=== PATIENT | female | born 1945 | race Caucasian/White ===

== ENCOUNTER 2016-09-29 16:28 | Inpatient (IN) | payer OTHER ==
[~2016-09-29] VITALS: Ht 157.5 cm; Wt 61.2 kg
[2016-09-29] MEDS ORDERED: FLUT1DIS3 INH (17:42)
[2016-09-29] MEDS ORDERED: PRAM1TAB5 PO (17:42)
[2016-09-29] MEDS ORDERED: ATOR20TA9 PO (17:42)
[2016-09-29] MEDS ORDERED: ENAL10TA PO (17:42)
[2016-09-29] MEDS ORDERED: CITA20TA9 PO (17:42)
[2016-09-29] MEDS ORDERED: TIOT18CA INH (17:42)
[2016-09-29] MEDS ORDERED: [UNRECOGNIZED DRUG - OTHER] PO (17:42)
[2016-09-29] MEDS ORDERED: OXYC-229 PO (17:42)
[2016-09-29] MEDS ORDERED: [UNRECOGNIZED DRUG - OTHER] PO (17:42)
[2016-09-29] MEDS ORDERED: CARV3.1212 PO (17:42)
[2016-09-29] MEDS ORDERED: ONDANSETRON 2MG/ML, 2ML ONE ×2 (18:14→19:19)
[2016-09-29] MEDS ORDERED: SODIUM CHLORIDE FLUSH 10ML SYR IVF ONE (18:30)
[2016-09-29] MEDS ORDERED: ONDANSETRON 2MG/ML, 2ML IVPush ONE ×2 (18:30→19:30)
[2016-09-29] MEDS ORDERED: SODIUM CHLORIDE 0.9% 1,000ML IVBOLUS ONE (18:30)
[2016-09-29 18:53] LABS: HEMOGLOBIN 16.4 g/dL (11.7-16.4)
[2016-09-29] MEDS ORDERED: MORPHINE SULFATE 4 MG/ML, 1ML IVPush ONE (19:00)
[2016-09-29 19:04] LABS: ASPARTATE AMINO TRANSFERASE 21 U/L (15-37); BLOOD UREA NITROGEN 10 mg/dL (7-18)
[2016-09-29 19:08] LABS: IS PT STATUS REG ER OR PRE ER? YES
[2016-09-29] MEDS ORDERED: ASPIRIN 81 MG TABLET CHEW ONE (19:25)
[2016-09-29] MEDS ORDERED: MORPHINE SULFATE 4 MG/ML, 1ML ONE (19:25)
[2016-09-29] MEDS ORDERED: ASPIRIN 81 MG TABLET CHEW PO ONE (19:30)
[2016-09-29 19:59] LABS: PATH.CAST-FLAG NOT PRESENT; SPERM-FLAG NOT PRESENT; SRC-FLAG NOT PRESENT; XTAL-FLAG NOT PRESENT; YLC-FLAG NOT PRESENT
[2016-09-29] MEDS ORDERED: SODIUM CHLORIDE 0.9% 1,000 ML IV SCH (20:12)
[2016-09-29] MEDS ORDERED: POLYETHYLENE GLYCOL 17 GM PACKET PO PRN (20:30)
[2016-09-29] MEDS ORDERED: MORPHINE SULFATE 4 MG/ML, 1ML IVPush PRN (20:30)
[2016-09-29] MEDS ORDERED: BISACODYL 10 MG SUPP PR PRN (20:30)
[2016-09-29] MEDS ORDERED: NABUMETONE 500 MG TABLET PO SCH (21:00)
[2016-09-29 21:16] LABS: IS PT STATUS REG ER OR PRE ER? YES
[2016-09-29 21:25] VITALS: BP 153/91
[2016-09-29] MEDS: CARBAMAZEPINE XR 200 MG TABLET PO SCH (22:35)
[2016-09-29] MEDS: ATORVASTATIN 20 MG TABLET PO SCH (22:35)
[2016-09-29] MEDS: HEPARIN 5,000 UNITS/ML, 1ML SQ SCH (22:35)
[2016-09-29] MEDS ORDERED: MAGNESIUM SULFATE PMX 2GM/50ML 50 ML IV ONE (23:00)
[2016-09-30] VITALS (7 sets, daily range): BP systolic 77–120; BP diastolic 46–70
[2016-09-30 02:04] LABS: HEMOGLOBIN 14.5 g/dL (11.7-16.4)
[2016-09-30 02:23] LABS: ASPARTATE AMINO TRANSFERASE 21 U/L (15-37); BLOOD UREA NITROGEN 11 mg/dL (7-18)
[2016-09-30 02:37] LABS: IS PT STATUS REG ER OR PRE ER? NO
[2016-09-30] MEDS: HEPARIN 5,000 UNITS/ML, 1ML SQ SCH ×3 (04:47→21:11)
[2016-09-30] MEDS ORDERED: MAGNESIUM SULFATE PMX 2GM/50ML 50 ML IV ONE (07:00)
[2016-09-30] MEDS: IPRATROPIUM 0.5 MG/2.5 ML INHA NPPB SCH ×3 (08:30→20:15)
[2016-09-30] MEDS ORDERED: OXYcodone/APAP 10/325MG TABLET PO SCH (09:00)
[2016-09-30] MEDS ORDERED: [UNRECOGNIZED DRUG - OTHER] PO SCH (09:00)
[2016-09-30] MEDS ORDERED: POTASSIUM CHLORIDE 10 MEQ in SODIUM CHLORIDE 0.9% 1,000 ML IV SCH ×2 (09:30→20:12)
[2016-09-30] MEDS: CARVEDILOL 3.125 MG TABLET PO SCH (09:55)
[2016-09-30] MEDS: ENALAPRIL 10 MG TABLET PO SCH (09:55)
[2016-09-30] MEDS: CITALOPRAM 20 MG TABLET PO SCH (09:55)
[2016-09-30] MEDS: NABUMETONE 500 MG TABLET PO SCH ×2 (09:55→21:13)
[2016-09-30] MEDS: NITROFURANTOIN (MACROBID) 100 MG CAPSULE PO SCH ×2 (09:55→21:13)
[2016-09-30] MEDS: CARBAMAZEPINE XR 200 MG TABLET PO SCH ×2 (09:56→21:14)
[2016-09-30] MEDS: FLUTICASONE/VILANTEROL 100-25MCG/INH INH SCH (09:56)
[2016-09-30] MEDS: ASPIRIN 325 MG TABLET PO SCH (09:56)
[2016-09-30] MEDS ORDERED: ONDANSETRON 2MG/ML, 2ML IVPush PRN (11:00)
[2016-09-30] MEDS ORDERED: SODIUM CHLORIDE 0.9% 1,000ML IVBOLUS ONE ×2 (12:30→21:00)
[2016-09-30 13:04] LABS: IS PT STATUS REG ER OR PRE ER? NO
[2016-09-30] MEDS: POTASSIUM CHLORIDE 10 MEQ in SODIUM CHLORIDE 0.9% 1,000 ML IV SCH (13:32)
[2016-09-30] MEDS: OMEPRAZOLE 20 MG CAPSULE.DR PO SCH (13:32)
[2016-09-30] MEDS: OXYcodone/APAP 10/325MG TABLET PO PRN ×2 (15:36→21:13)
[2016-09-30] MEDS: PRAMIPEXOLE 0.5MG TABLET PO SCH (21:00)
[2016-09-30] MEDS: ATORVASTATIN 20 MG TABLET PO SCH (21:14)
[2016-10-01 02:31] VITALS: BP 92/57
[2016-10-01] MEDS: IPRATROPIUM 0.5 MG/2.5 ML INHA NPPB SCH ×4 (03:00→21:40)
[2016-10-01] MEDS: ASPIRIN 325 MG TABLET PO SCH (05:04)
[2016-10-01] MEDS: HEPARIN 5,000 UNITS/ML, 1ML SQ SCH ×3 (05:06→20:41)
[2016-10-01] MEDS: POTASSIUM CHLORIDE 10 MEQ in SODIUM CHLORIDE 0.9% 1,000 ML IV SCH (05:44)
[2016-10-01 06:42] VITALS: BP 94/52
[2016-10-01 06:46] LABS: BLOOD UREA NITROGEN 11 mg/dL (7-18)
[2016-10-01] MEDS: OMEPRAZOLE 20 MG CAPSULE.DR PO SCH (07:30)
[2016-10-01] MEDS ORDERED: REGADENOSON 0.4 MG/5 ML SYRINGE ONE (08:27)
[2016-10-01] MEDS: CITALOPRAM 20 MG TABLET PO SCH (09:00)
[2016-10-01] MEDS: NABUMETONE 500 MG TABLET PO SCH ×2 (09:00→20:40)
[2016-10-01] MEDS: CARBAMAZEPINE XR 200 MG TABLET PO SCH ×2 (09:00→20:40)
[2016-10-01] MEDS: CARVEDILOL 3.125 MG TABLET PO SCH (09:00)
[2016-10-01] MEDS: ENALAPRIL 10 MG TABLET PO SCH (09:00)
[2016-10-01] MEDS: NITROFURANTOIN (MACROBID) 100 MG CAPSULE PO SCH ×2 (09:00→20:39)
[2016-10-01] MEDS: FLUTICASONE/VILANTEROL 100-25MCG/INH INH SCH (09:55)
[2016-10-01] MEDS: OXYcodone/APAP 10/325MG TABLET PO PRN ×2 (14:04→21:53)
[2016-10-01 14:09] VITALS: BP 115/71
[2016-10-01 20:22] VITALS: BP 91/51
[2016-10-01] MEDS: ATORVASTATIN 20 MG TABLET PO SCH (20:40)
[2016-10-01] MEDS: PRAMIPEXOLE 0.5MG TABLET PO SCH (20:58)
[2016-10-02] MEDS: POTASSIUM CHLORIDE 10 MEQ in SODIUM CHLORIDE 0.9% 1,000 ML IV SCH (01:15)
[2016-10-02 02:24] VITALS: BP 110/63
[2016-10-02] MEDS: ASPIRIN 325 MG TABLET PO SCH (05:16)
[2016-10-02] MEDS: HEPARIN 5,000 UNITS/ML, 1ML SQ SCH (05:16)
[2016-10-02 06:30] VITALS: BP 150/66
[2016-10-02] MEDS: IPRATROPIUM 0.5 MG/2.5 ML INHA NPPB SCH (06:40)
[2016-10-02] MEDS: CARVEDILOL 3.125 MG TABLET PO SCH (08:23)
[2016-10-02] MEDS: CITALOPRAM 20 MG TABLET PO SCH (08:23)
[2016-10-02] MEDS: NABUMETONE 500 MG TABLET PO SCH (08:24)
[2016-10-02] MEDS: CARBAMAZEPINE XR 200 MG TABLET PO SCH (08:24)
[2016-10-02] MEDS: OMEPRAZOLE 20 MG CAPSULE.DR PO SCH (08:24)
[2016-10-02] MEDS: ENALAPRIL 10 MG TABLET PO SCH (08:24)
[2016-10-02] MEDS: OXYcodone/APAP 10/325MG TABLET PO PRN (08:24)
[2016-10-02] MEDS: FLUTICASONE/VILANTEROL 100-25MCG/INH INH SCH (08:24)
[2016-10-02] MEDS: NITROFURANTOIN (MACROBID) 100 MG CAPSULE PO SCH (08:25)
== END 2016-10-02 11:57 | disposition home or self-care (01) | DRG 690 ==
LOC: ED 19:53 → EDIP 19:55 → 4WST 21:15 → 4EST 09-30 00:47
PROVIDERS: ADMIT Internal Medicine; ATTEND Internal Medicine
DX: N39.0 Urinary tract infection, site not specified (principal); E87.1 Hypo-osmolality and hyponatremia; I69.351 Hemiplegia and hemiparesis following cerebral infarction affecting right dominant side; E86.0 Dehydration; R11.2 Nausea with vomiting, unspecified; E83.42 Hypomagnesemia; G40.909 Epilepsy, unspecified, not intractable, without status epilepticus; E78.5 Hyperlipidemia, unspecified; I10 Essential (primary) hypertension; I25.10 Atherosclerotic heart disease of native coronary artery without angina pectoris; I35.8 Other nonrheumatic aortic valve disorders; J45.909 Unspecified asthma, uncomplicated; M54.9 Dorsalgia, unspecified; G89.29 Other chronic pain; J44.9 Chronic obstructive pulmonary disease, unspecified; R74.8 Abnormal levels of other serum enzymes; E87.8 Other disorders of electrolyte and fluid balance, not elsewhere classified; F17.200 Nicotine dependence, unspecified, uncomplicated; I25.2 Old myocardial infarction; Z80.8 Family history of malignant neoplasm of other organs or systems; Z98.1 Arthrodesis status; I69.321 Dysphasia following cerebral infarction; Z90.710 Acquired absence of both cervix and uterus; Z90.49 Acquired absence of other specified parts of digestive tract; Z80.9 Family history of malignant neoplasm, unspecified; Z88.0 Allergy status to penicillin; Z88.8 Allergy status to other drugs, medicaments and biological substances; Z88.1 Allergy status to other antibiotic agents; Z91.018 Allergy to other foods
CPT/HCPCS: 36415; 71010; 74020; 78452; 80048; 80053; 80061; 81001; 82533; 83605; 83690; 83735; 83880; 84100; 84439; 84443; 84484; 85025; 85379; 87086; 93005; 93017; 93306; 94640; 96374; 96375; 96376; J1644; J2405; J2785; J3480; J7644; A9502; C9898; J3475; J7030